=== PATIENT | female | born 1965 | race Hispanic/Latino ===

== ENCOUNTER → 2018-10-20 | Outpatient (CLI) | payer BC | END | disposition home or self-care (01) | LOC: RAH 11:35 | PROVIDERS: ATTEND Internal Medicine | DX: Z12.31 Encounter for screening mammogram for malignant neoplasm of breast (principal) | CPT/HCPCS: 77067 ==

== ENCOUNTER → 2019-11-25 | Outpatient (CLI) | payer BC | END | disposition home or self-care (01) | LOC: RAH 10:13 | DX: Z12.31 Encounter for screening mammogram for malignant neoplasm of breast (principal) | CPT/HCPCS: 77067 ==

== ENCOUNTER → 2020-10-01 | Outpatient (CLI) | payer BC | END | disposition home or self-care (01) | LOC: RAH 11:22 | DX: N60.01 Solitary cyst of right breast (principal) | CPT/HCPCS: 76641 ==